=== PATIENT | male | born 1985 | race African-American/Black ===

== ENCOUNTER 2018-08-13 00:28 | Inpatient (IN) | payer SELFPAY ==
[2018-08-13 01:29] LABS: #Basophils 0.1 thou/uL (0.0-0.2); #Eosinphils 0.1 thou/uL (0.0-0.7); #Lymphocytes 1.9 thou/uL (1.20-3.40); #Monocytes 1.5 thou/uL (0.11-0.59); #Neutrophils 8.3 thou/uL (1.40-6.50); %Basophils 0.7 % (0.0-1.0); %Eosinophils 1.2 % (0.0-10.0); %Lymphocytes 15.5 % (21.0-51.0); %Monocytes 12.9 % (0.0-10.0); %Neutrophils 69.7 % (42.0-75.0); Hemoglobin 13.5 g/dL (14.0-18.0); Mean Corpuscular Hemoglobin 30.7 pg (27.0-31.0); Mean Corpuscular Volume 87.9 fL (78.0-98.0); Mean Platelet Volume 7.6 fL (7.4-10.4); Platelet Count 316 thou/uL (130-400); RBC Distribution Width 15.2 % (11.5-14.5); Red Blood Cell (RBC) Count 4.39 mill/uL (4.70-6.10); White Blood Cell (WBC) Count 11.9 thou/uL (4.8-10.8)
[2018-08-13 01:58] LABS: ALT (SGPT) 10 U/L (8-55); AST (SGOT) 13 U/L (5-34); Albumin 3.5 g/dL (3.5-5.0); Alkaline Phosphatase 104 U/L (40-150); Anion Gap 20 mmol/L (10-20); BUN (Urea Nitrogen) 7 mg/dL (8.9-20.6); Bilirubin, Total 0.2 mg/dL (0.2-1.2); Calc. Creatinine Clearance 0 mL/min (70-130); Carbon Dioxide 18 mmol/L (22-29); Chloride 99 mmol/L (98-107); Estimated GFR-MDRD 77; Glucose 494 mg/dL (70-105); Potassium 3.8 mmol/L (3.5-5.1); Protein, Total 8.5 g/dL (6.0-8.3); Sodium 133 mmol/L (136-145)
[2018-08-13] MEDS ORDERED: Piperacillin/Tazobactam 4.5 GM VIAL ONE (03:26)
[2018-08-13 04:16] LABS: Magnesium 2.6 mg/dL (1.6-2.6); Phosphorus 3.5 mg/dL (2.3-4.7)
[2018-08-13] MEDS ORDERED: Insulin Regular 300 UNITS/3 ML VIAL ONE (04:34)
[2018-08-13] MEDS ORDERED: Ondansetron ODT 4 MG TAB SL PRN (06:30)
[2018-08-13] MEDS ORDERED: Ondansetron HCl/PF 4 MG/2 ML Vial IVP PRN (06:30)
[2018-08-13] MEDS ORDERED: Acetaminophen 325 MG TAB PO PRN ×2 (06:30→07:27)
[2018-08-13] MEDS ORDERED: Sodium Chloride 0.9% 1,000 ML IV SCH (06:30)
[2018-08-13] MEDS ORDERED: Dextrose 50% Abboject 50 ML SYRINGE SLOW IVP PRN (07:27)
[2018-08-13] MEDS ORDERED: Zolpidem Tartrate 5 MG TAB PO PRN (07:27)
[2018-08-13] MEDS ORDERED: Dextrose 5% in Water 1,000 ML IV PRN (07:27)
[2018-08-13] MEDS ORDERED: Ondansetron ODT 4 MG TAB PO PRN (07:27)
[2018-08-13 07:57] LABS: Hemoglobin A1c 13.6 % (4.0-6.0)
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
[2018-08-13] MEDS: Sodium Chloride 0.9% 1,000 ML IV SCH ×2 (08:00→17:29)
--- NOTE | 2018-08-13 09:00 | RAD ---
3 VIEWS RIGHT FOOT: Date: 08/13/18 HISTORY: Right foot swelling and pain that started on Monday. FINDINGS: Lisfranc joint is normally aligned. No fracture or dislocation is seen. Subcutaneous soft tissue swel ling is seen at the dorsal aspect of the foot. No osseous destruction is seen. IMPRESSION: Prominent subcutaneous soft tissue swelling at the dorsal aspect of the foot, but no underlying osseo us abnormality is appreciated. POS: АННА
[2018-08-13] MEDS: Enoxaparin Sodium 40 MG/0.4 ML SYRINGE SC SCH (09:59)
[2018-08-13] MEDS: metFORMIN 500 MG TAB PO SCH ×3 (09:59→21:05)
[2018-08-13] MEDS: HumaLOG 300 UNITS/3 ML VIAL SC PRN ×3 (10:35→17:26)
[2018-08-13] MEDS: CEFAZOLIN 1 GM in Sodium Chloride 0.9% 100 ML IVPB SCH ×2 (14:20→21:06)
[2018-08-14] MEDS: Sodium Chloride 0.9% 1,000 ML IV SCH (03:30)
[2018-08-14] MEDS: CEFAZOLIN 1 GM in Sodium Chloride 0.9% 100 ML IVPB SCH (04:56)
[2018-08-14 05:08] LABS: Anion Gap 13 mmol/L (10-20); BUN (Urea Nitrogen) 7 mg/dL (8.9-20.6); Calc. Creatinine Clearance 234 mL/min (70-130); Calcium 8.4 mg/dL (7.8-10.44); Carbon Dioxide 23 mmol/L (22-29); Chloride 106 mmol/L (98-107); Estimated GFR-MDRD Greater than 90; Glucose 214 mg/dL (70-105); Potassium 3.2 mmol/L (3.5-5.1); Sodium 139 mmol/L (136-145)
[2018-08-14] MEDS: Enoxaparin Sodium 40 MG/0.4 ML SYRINGE SC SCH (08:12)
[2018-08-14] MEDS: metFORMIN 500 MG TAB PO SCH (08:12)
--- NOTE | 2018-08-14 08:22 | PDOC.PN ---
- Subjective Encounter Start Date: 08/14/18 Encounter Start Time: 08:20 Subjective: no fever, pain - Objective Resuscitation Status: Resuscitation Status FULL:Full Resuscitation MAR Reviewed: Yes Vital Signs & Weight: Vital Signs (12 hours) Temp Pulse Resp BP Pulse Ox 08/14/18 07:49 97.9 F 79 20 106/66 97 08/14/18 04:00 98.2 F 77 16 124/75 97 08/14/18 00:00 98.2 F 66 16 113/74 99 Weight Admit Weight 279 lb Weight 279 lb I&O: 08/13/18 08/14/18 08/15/18 06:59 06:59 06:59 Intake Total 2160 Output Total 1260 Balance 900 Result Diagrams: 08/13/18 01:22 08/14/18 04:15 Additional Labs: Accuchecks 08/14/18 08/13/18 08/13/18 04:40 20:12 15:46 POC Glucose 210 H 186 H 237 H 08/13/18 08/13/18 11:31 07:47 POC Glucose 317 H 281 H Phys Exam - Physical Examination Neck: no JVD Respiratory: clear to auscultation bilateral Cardiovascular: RRR, no significant murmur Gastrointestinal: soft, non-tender, positive bowel sounds Musculoskeletal: no edema Dx/Plan (1) Diabetic ulcer of foot associated with type 2 diabetes mellitus, limited to breakdown of skin Code(s): E11.621 - TYPE 2 DIABETES MELLITUS WITH FOOT ULCER; L97.501 - NON-PRS CHR ULCER OTH PRT UNSP FOOT LIMITED TO BRKDWN SKIN Status: Acute Qualifiers: Diabetic foot ulcer location: unspecified part of foot Laterality: right Qualified Code(s): E11.621 - Type 2 diabetes mellitus with foot ulcer; L97.511 - Non-pressure chronic ulcer of other part of right foot limited to breakdown of skin (2) DM (diabetes mellitus), type 2, uncontrolled Code(s): E11.65 - TYPE 2 DIABETES MELLITUS WITH HYPERGLYCEMIA Status: Acute Qualifiers: Glycemic state: with hyperglycemia Qualified Code(s): E11.65 - Type 2 diabetes mellitus with hyperglycemia (3) Acidosis Code(s): E87.2 - ACIDOSIS Status: Resolved - Plan wound C&S pos strep-cont ancef -: cont metformin/accu/ss * .
[2018-08-14 11:11] VITALS: BP 123/85; TEMP 98.2
[2018-08-14 11:38] VITALS: BMI 41.8
--- NOTE | 2018-08-14 12:05 | DIS ---
DATE OF ADMISSION: 08/13/2018 DATE OF DISCHARGE: 08/14/2018 [facility] call admission for Igor. DISPOSITION: Discharged home. The patient presented with a painful lesion on his foot draining bloody purulent drainage. He was fo und to have a marked elevated blood sugar, has a positive family history for diabetes. His initial l aboratory revealed a white count of 11.9, hemoglobin 13.5, platelet count of 216,000. His initial so dium 133, potassium 3.8, CO2 of 18, blood sugar 494, BUN 7, creatinine 1.29. He was started on metfo rmin with Accu-Cheks and sliding scales. He was started on Ancef. Wound care was obtained. His blo od sugars have rapidly come down to the 200 plus/minus level. He has been placed on a consistent car bohydrate diet. His hemoglobin A1c was 13 indicating long-term diabetes. His foot culture grew out strep, followup CO2 was 23, chloride 106, sodium 139. He is being discharged on metformin 1500 mg a day in split doses and Omnicef 300 mg twice a day. Wound care. Prescriptions have been written for crutches. He has been asked to find a doctor for followup within 7 days. I have asked for priscila santa in helping him find a doctor. CONSULTATIONS: None. PROCEDURES: None.
[2018-08-14 12:20] LABS: Base Excess-Venous -3.1 mmol/L (0 (+/- 2.5)); Bicarbonate (HCO3v) 23.2 mmol/L (1.0-85.0); CO2 Tension (PvCO2) 44.5 mmHg (41.0-51.0); Hemoglobin - Calc 15.2 g/dL (12.0-18.0); O2 Tension (PvO2) 31.9 mmHg (35.0-45.0); pH (Venous) 7.324 (7.35-7.45); vO2 Saturation-calc 56.3 % (94-98)
[2018-08-14 12:21] LABS: T. Carbon Dioxide 24.5 mmol/L (1.0-85.0)
[2018-08-14] MEDS: HumaLOG 300 UNITS/3 ML VIAL SC PRN (12:29)
== END 2018-08-14 13:27 | disposition home or self-care (01) | DRG 639 ==
LOC: ERS 00:28 → 2NO 05:18 → T4-A 10:42
PROVIDERS: ADMIT Internal Medicine; ATTEND Internal Medicine
DX: E11.621 Type 2 diabetes mellitus with foot ulcer (principal); E11.10 Type 2 diabetes mellitus with ketoacidosis without coma; E11.65 Type 2 diabetes mellitus with hyperglycemia; B95.5 Unspecified streptococcus as the cause of diseases classified elsewhere; L97.511 Non-pressure chronic ulcer of other part of right foot limited to breakdown of skin
CPT/HCPCS: 36415; 36416; 80048; 80053; 82010; 82330; 82803; 83036; 83690; 83735; 83930; 84100; 85014; 85025; 87040; 87070; 87077; 87205; 96361; 96365; 96367; 96375; 99406; J0690; J1650; J1815; J2543; J3370; J7050